=== PATIENT | male | born 1980 | race Caucasian/White ===

== ENCOUNTER 2020-10-03 21:43 | Emergency (ER) | payer SELFPAY ==
[~2020-10-03] VITALS: Ht 172.7 cm; Wt 108.0 kg
[2020-10-04] MEDS ORDERED: HYDROCODONE/ACETAMINOPHEN 5/325MG TABLET PO ONE (01:45)
[2020-10-04 03:37] VITALS: BP 128/80
== END 2020-10-04 03:45 | disposition home or self-care (01) ==
LOC: ER 21:43
DX: M25.552 Pain in left hip (principal); Z87.828 Personal history of other (healed) physical injury and trauma
CPT/HCPCS: 73502; 73552; 99285